=== PATIENT | female | born 1960 | race African-American/Black ===

== ENCOUNTER 2020-04-23 10:08 | Day surgery (SDC) | payer OTHER ==
[2020-04-18 15:13] VITALS: BMI 25.2
[~2020-04-23 10:08] MED LIST: CEFAZOLIN 2 GM/D5W 2 GM/50 ML ML IVPB ONE; CELECOXIB 200 MG CAPSULE PO ONE; VANCOMYCIN 1,000 MG in DEXTROSE 5%-WATER - 250 ML IVPB ONE
[2020-04-23] MEDS ORDERED: BUPIVACAINE HCL/PF 0.25% (2.5MG/ML) 10 ML VIAL ONE ×2 (10:17→10:27)
[2020-04-23] MEDS ORDERED: PROPOFOL 20 ML ONE (10:18)
[2020-04-23] MEDS ORDERED: MIDAZOLAM HCL 2 MG/2 ML SINGLE DOSE VIAL ONE ×2 (10:18)
[2020-04-23 10:43] VITALS: BP 126/85; PULSE 95; TEMP 98.3
== END 2020-04-23 12:00 | disposition home or self-care (01) ==
LOC: UNDOADMIN 10:08 → FASUSAT 10:08 → FM/S 10:08 → EDSTATUS 10:30 → UNDODISIN 12:00 → FASUSAT 12:00
PROVIDERS: ATTEND Orthopaedic Surgery Adult Reconstructive Orthopaedic Surgery
PROC: 0SR90JZ Replacement of Right Hip Joint with Synthetic Substitute, Open Approach (ICD-10-PCS; principal; 2020-04-23)
DX: M16.11 Unilateral primary osteoarthritis, right hip (principal); Z53.09 Procedure and treatment not carried out because of other contraindication